=== PATIENT | male | born 2000 | race Two or more races ===

== ENCOUNTER 2022-05-09 13:28 | Emergency (ER) | payer OTHER ==
[2022-05-09 14:06] VITALS: BP 133/77; PULSE 95; RESP 17; TEMP 98.2; BMI 33.4
[2022-05-09] MEDS ORDERED: DIPHTH,PERTUSS(ACELL),TET 0.5 ML DISP.SYRIN IM ONE (14:24)
== END 2022-05-09 16:21 | disposition home or self-care (01) ==
LOC: JER 13:28 → JERFT 13:28
PROC: 3E0234Z Introduction of Serum, Toxoid and Vaccine into Muscle, Percutaneous Approach (ICD-10-PCS; principal; 2022-05-09)
DX: S61.011A Laceration without foreign body of right thumb without damage to nail, initial encounter (principal); W29.0XXA Contact with powered kitchen appliance, initial encounter
CPT/HCPCS: 90471; 90715; 99284-25

== ENCOUNTER 2022-05-19 10:38 | Emergency (ER) | payer OTHER ==
[2022-05-19 10:45] VITALS: BP 123/87; PULSE 83; RESP 18; TEMP 98.2; BMI 33.4
[2022-05-19] MEDS ORDERED: BACITRACIN 0.9 GM PACKET TP ONE (11:13)
[2022-05-19] MEDS ORDERED: BACITRACIN ZINC 15 GM TUBE TOPICAL OINTMENT ONE (11:25)
== END 2022-05-19 11:29 | disposition home or self-care (01) ==
LOC: JERFT 10:38
DX: S61.011D Laceration without foreign body of right thumb without damage to nail, subsequent encounter (principal); W26.8XXD Contact with other sharp object(s), not elsewhere classified, subsequent encounter; Z48.02 Encounter for removal of sutures
CPT/HCPCS: 99282-25